=== PATIENT | female | born 1955 | race Caucasian/White ===

== ENCOUNTER 2018-08-21 10:23 | Emergency (ER) | payer OTHER ==
[2018-08-21] MEDS ORDERED: Sulfameth/Trimethoprim DS 800-160mg TAB ONE ×2 (11:10)
== END 2018-08-21 11:25 | disposition home or self-care (01) ==
LOC: MADERS 10:23
DX: L02.416 Cutaneous abscess of left lower limb (principal); L03.116 Cellulitis of left lower limb; J45.909 Unspecified asthma, uncomplicated; I10 Essential (primary) hypertension; Z79.899 Other long term (current) drug therapy
CPT/HCPCS: 10060; 87070; 87205

== ENCOUNTER 2019-05-09 12:36 | Emergency (ER) | payer OTHER ==
--- NOTE | 2019-05-09 14:27 | RAD ---
EXAM: Chest Two Views 05/09/2019 2:24 PM HISTORY: Cough COMPARISON: None. FINDINGS: Heart: There is mild cardiomegaly Pulmonary vessels: Mild pulmonary vascular congestion Costophrenic angles: Clear. Lungs: No confluent pneumonia, overt edema, pleural effusion, or other acute process. Pneumothorax: None. Osseous structures:Intact. Additional findings: None. IMPRESSION: Mild cardiomegaly and mild pulmonary vascular congestion
== END 2019-05-09 15:00 | disposition home or self-care (01) ==
LOC: MADERS 12:36
DX: B34.9 Viral infection, unspecified (principal); E03.9 Hypothyroidism, unspecified; E78.5 Hyperlipidemia, unspecified; I10 Essential (primary) hypertension; F41.0 Panic disorder [episodic paroxysmal anxiety]; Z79.899 Other long term (current) drug therapy
CPT/HCPCS: 71046; 87804; 93005

== ENCOUNTER 2019-06-12 10:42 | Outpatient (CLI) | payer OTHER ==
--- NOTE | 2019-06-12 11:02 | RAD ---
Chest 2 views HISTORY: Dyspnea. Vascular disease. COMPARISON: 05/09/2019. FINDINGS: Cardiac silhouette is magnified, enlarged, and partially obscured by left basilar parenchym al opacity and pleural fluid. Mild linear atelectasis at the right base with minimal right pleural fluid. Pulmonary vasculature upper limits of normal. Mediastinum is midline with interval postoperative changes. No evidence of pneumothorax. IMPRESSION: Left lower lobe atelectasis, likely residua from recent mediastinal surgery. Small amount of pleural fluid, left greater than right.
== END 2019-06-12 10:43 | disposition home or self-care (01) ==
LOC: MADRAD 10:42
DX: I35.0 Nonrheumatic aortic (valve) stenosis (principal); J98.11 Atelectasis; J94.8 Other specified pleural conditions; Z98.890 Other specified postprocedural states; Z95.2 Presence of prosthetic heart valve
CPT/HCPCS: 71046

== ENCOUNTER 2019-08-26 11:34 | Outpatient (CLI) | payer OTHER ==
[2019-08-26 12:05] LABS: Anion Gap 14 mmol/L (10-20); BUN (Urea Nitrogen) 14 mg/dL (9.8-20.1); Calc. Creatinine Clearance 0 mL/min (70-130); Calcium 9.8 mg/dL (7.8-10.44); Carbon Dioxide 26 mmol/L (23-31); Cardiac Risk 4.3 (Less than 4.5); Chloride 104 mmol/L (98-107); Cholesterol 203 mg/dl (< 200 Desired); Estimated GFR-MDRD 74; Glucose 112 mg/dL (80-115); HDL Cholesterol 47 mg/dL (>60 Neg Risk); LDL Cholesterol, Calculated 109 mg/dL; Potassium 3.9 mmol/L (3.5-5.1); Sodium 140 mmol/L (136-145); Triglycerides 233 mg/dL (Less than 150)
--- NOTE | 2019-08-26 13:17 | RAD ---
LUMBAR SPINE 3 VIEWS: Date: 08/26/19 HISTORY: Back pain. Sacroiliac abnormality. FINDINGS: There are five lumbar-type vertebrae. Pedicles are intact. Mild osteophytosis of the sacroiliac joint s. Sacral ala are intact. Vertebral body height and alignment are maintained. Moderate osteophytosis of the lower facets. Mild osteophytosis elsewhere. No acute fracture or dislocation. IMPRESSION: Mild degenerative changes lower lumbar spine and sacroiliac joints. No acute osseous abnormalities ar e demonstrated. POS: TPC
--- NOTE | 2019-08-26 13:25 | RAD ---
RIGHT KNEE THREE VIEWS: HISTORY: Right knee pain. FINDINGS: There are postop changes of total knee arthroplasty in good position and alignment. No fracture, disl ocation or bony destruction is seen. No perihardware lucency is identified to suggest loosening. POS: TPC
--- NOTE | 2019-08-26 13:43 | RAD ---
LEFT KNEE 3 VIEWS: Date: 08/26/19 HISTORY: Left knee pain. FINDINGS/IMPRESSION: There are postop changes of total knee arthroplasty in good position and alignment. No fracture, disl ocation, or bony destruction seen. No perihardware lucency is identified to suggest loosening. POS: TPC
--- NOTE | 2019-08-26 13:56 | RAD ---
SACROILIAC JOINTS THREE VIEWS: HISTORY: Back pain. FINDINGS: Joint spaces are preserved. Mild osteophytosis. Sacral alae are intact. IMPRESSION: Mild osteoarthritic changes. No acute osseous abnormalities are demonstrated. POS: TPC
== END 2019-08-26 11:35 | disposition home or self-care (01) ==
LOC: MADLABBHPM 11:34
PROVIDERS: ATTEND Family Medicine
DX: M53.3 Sacrococcygeal disorders, not elsewhere classified (principal); E78.5 Hyperlipidemia, unspecified; R00.2 Palpitations; M47.818 Spondylosis without myelopathy or radiculopathy, sacral and sacrococcygeal region; M47.816 Spondylosis without myelopathy or radiculopathy, lumbar region; Z96.653 Presence of artificial knee joint, bilateral
CPT/HCPCS: 36415; 72100; 72202; 80048; 80061

== ENCOUNTER 2020-12-06 10:16 | Outpatient (CLI) | payer MEDICARE, OTHER ==
--- NOTE | 2020-12-06 12:04 | CT ---
Exam: Abdomen CT with and without contrast HISTORY: Renal protocol. Right adrenal mass. COMPARISON: None Correlation: Outside CT report 05/19/2019 TECHNIQUE: Abdomen and pelvic CT is performed with and without contrast following urogram protocol. C oronal reformatted images are submitted for interpretation FINDINGS: Lung bases: Dependent atelectatic changes and minimal Heart: Normal heart size. No significant pericardial fluid Aorta: Atherosclerosis without aneurysm or periaortic fat stranding Liver: Hypodensities in the hepatic parenchyma are favored to be cysts. Cysts measure 1.4 and 1.8 cm in maximum dimension Spleen: Appropriate enhancement Pancreas: Appropriate enhancement Adrenal glands: There is a 1.5 x 2.0 cm hypodense lesion occupying the majority the right adrenal gla nd. On the noncontrast images, the attenuation coefficient is -3 Hounsfield units which is compatible with a benign adenoma. Appropriate enhancement of the left adrenal gland Lymph nodes: No gastrohepatic, retrocrural or periportal lymphadenopathy Portal vein: Patent Gallbladder: Unremarkable Kidneys: Noncontrast: No evidence of nephrolithiasis Contrast: Symmetric enhancement. Delayed: Symmetric excretion. No evidence of obstructive uropathy Mesentery: No mass, nephropathy, free air or free fluid Alimentary canal: Limited evaluation due to lack of oral contrast administration. With regards to the visualized alimentary canal, no evidence of bowel obstruction. The ileocecal junction is normal. Appendix is not appreciated. No inflammation at the cecal apex. Scattered fecal material in the visua lized colon No lytic or blastic lesions in the osseous structures IMPRESSION: 1. Right adrenal adenoma.
== END 2020-12-06 10:17 | disposition home or self-care (01) ==
LOC: MADCT 10:16
PROVIDERS: ATTEND Family Medicine
DX: E27.8 Other specified disorders of adrenal gland (principal); D35.01 Benign neoplasm of right adrenal gland
CPT/HCPCS: 36415; 74170; 82565

== ENCOUNTER 2021-08-15 11:22 | Outpatient (CLI) | payer MEDICARE, OTHER ==
[2021-08-15 11:43] LABS: #Basophils 0.1 thou/uL (0.0-0.2); #Eosinphils 0.2 thou/uL (0.0-0.7); #Lymphocytes 1.4 thou/uL (1.20-3.40); #Monocytes 0.5 thou/uL (0.11-0.59); #Neutrophils 3.6 thou/uL (1.40-6.50); %Basophils 1.3 % (0.0-1.0); %Eosinophils 2.7 % (0.0-10.0); %Lymphocytes 23.8 % (21.0-51.0); %Neutrophils 63.2 % (42.0-75.0); Hemoglobin 13.8 g/dL (12.0-16.0); Mean Corpuscular Hemoglobin 30.7 pg (27.0-31.0); Mean Corpuscular Volume 96.1 fL (78.0-98.0); Mean Platelet Volume 6.9 fL (7.4-10.4); Platelet Count 322 thou/uL (130-400); RBC Distribution Width 11.9 % (11.5-14.5); Red Blood Cell (RBC) Count 4.48 mill/uL (4.20-5.40); White Blood Cell (WBC) Count 5.6 thou/uL (4.8-10.8)
[2021-08-15 11:47] LABS: INR-International Normal Ratio 1.1
[2021-08-15 11:48] LABS: PTT 35.7 sec (22.9-36.1)
[2021-08-15 11:55] LABS: Anion Gap 13 mmol/L (10-20); BUN (Urea Nitrogen) 7 mg/dL (9.8-20.1); Calc. Creatinine Clearance 0 mL/min (70-130); Calcium 9.6 mg/dL (7.8-10.44); Carbon Dioxide 27 mmol/L (23-31); Chloride 107 mmol/L (98-107); Glucose 109 mg/dL (80-115); Sodium 143 mmol/L (136-145)
== END 2021-08-15 11:23 | disposition home or self-care (01) ==
LOC: MADLAB 11:22
PROVIDERS: ATTEND Family Medicine
DX: E78.5 Hyperlipidemia, unspecified (principal); E03.9 Hypothyroidism, unspecified; E11.9 Type 2 diabetes mellitus without complications
CPT/HCPCS: 36415; 80048; 84443; 85025; 85610; 85730